=== PATIENT | female | born 1965 | race Caucasian/White ===

== ENCOUNTER 2023-02-04 16:58 | Emergency (ER) | payer BC, SELFPAY ==
[2023-02-04 17:00] VITALS: BP 128/68; PULSE 69; RESP 16; TEMP 37.1; O2SAT 100; BMI 23.5
[2023-02-04] MEDS: ONDANSETRON 4 MG ODT SL (17:09)
[2023-02-04 17:43] LABS: Add Manual Diff / Slide Review NO; Basophils Absolute Auto 100 /uL (0-100); Basophils Percent Auto 0.9 % (0-2); Eosinophils Absolute Auto 100 /uL (0-450); Eosinophils Percent Auto 0.8 % (2-4); Hematocrit 42.6 % (36-46); Hemoglobin 14.7 g/dL (12.0-16.0); Lymphocytes Absolute Auto 1800 /uL (1100-4500); Lymphocytes Percent Auto 24.1 % (25-40); Mean Corpuscular HGB Conc 34.4 % (30-36); Mean Corpuscular Hemoglobin 32.9 PG (26-34); Mean Corpuscular Volume 95.7 fL (80-100); Monocytes Absolute Auto 400 /uL (0-900); Monocytes Percent Auto 5.6 % (3-14); Neutrophils Absolute Auto 5000 /uL (1500-7000); Neutrophils Percent Auto 68.6 % (50-75); Platelet Count 265 X10^3/uL (150-400); Red Blood Cell Count 4.45 X10^6/uL (4.0-5.2); Red Cell Distribution Width 12.5 % (11.6-14.8); White Blood Cell Count 7.3 X10^3/uL (4.5-11.0)
[2023-02-04 17:45] LABS: Alanine Aminotransferase 26 IU/L (<35); Albumin 4.8 g/dL (3.5-5.0); Albumin Globulin Ratio 1.4 (1.0-2.8); Alkaline Phosphatase 66 U/L (38-126); Aspartate Aminotransferase 26 IU/L (14-36); BUN Creatinine Ratio 18.9 (6-22); Blood Urea Nitrogen 14 mg/dL (7-17); Calcium 9.6 mg/dL (8.4-10.2); Carbon Dioxide 32 mmol/L (22-32); Chloride 99 mmol/L (98-107); Estimated Glomerular Filt Rate > 60 mL/min (>60); Globulin 3.5 g/dL (1.7-4.1); Glucose 90 mg/dL (70-100); HEMOLYSIS < 15 (0-50); Lipase 228 U/L (23-300); Potassium 3.9 mmol/L (3.4-5.1); Sodium 139 mmol/L (137-145); Total Protein 8.3 g/dL (6.3-8.2)
[2023-02-04] MEDS: SODIUM CHLORIDE 0.9% 1,000 ML 1000 ML IV (17:49)
--- NOTE | 2023-02-04 18:27 | ED_ITS ---
HPI - Nausea/Vomiting/Diarrhea General Chief complaint: Nausea/Vomiting/Diarrhea Stated complaint: Vomiting Time Seen by Provider: 02/04/23 17:31 Source: patient Mode of arrival: Ambulatory History of Present Illness HPI Narrative: 57-year-old woman with a history of moderate obesity has been on Ozempic for the last 6 months with a 50 lb weight loss had stopped medications approximately 2 weeks ago took her last dose 2 days ago and began having significant vomiting to the point she was unable to keep any foods down. No diarrhea, no fevers nobody else at home sick. She has not had previous issues with the medication. She is complaining of low-grade headache that she is attributing to dehydration. She is not complaining of additional abdominal pain, shortness breath, palpitations. Related Data Home Medications Medication Instructions Recorded Confirmed No Known Home Medications 12/11/20 12/11/20 Allergies Allergy/AdvReac Type Severity Reaction Status Date / Time latex [LATEX] Allergy Intermediate TURNS SKIN Verified 02/04/23 17:00 RED codeine [CODEINE] Allergy Unknown Verified 02/04/23 17:00 Opioids-Meperidine and AdvReac Intermediate N/V Verified 02/04/23 17:00 Related [OPIOIDS-MEPERIDINE AND RELATED] Review of Systems Review of Systems Narrative: Pertinent positive and negative findings as per HPI Patient History Surgical History History of gynecologic surgery (11/27/17) History of tonsillectomy Status post appendectomy Status post bilateral salpingectomy (11/27/17) Status post laparoscopy Status post vaginal hysterectomy (11/27/17) Social History Smoking Status: Never smoker Smoking Status: Never smoker alcohol intake frequency: holidays/special occasions only Substance Use Type: marijuana Exam Initial Vital Signs Initial Vital Signs: Vital Signs Temperature 98.7 F 02/04/23 17:00 Pulse Rate 69 02/04/23 17:00 Respiratory Rate 16 02/04/23 17:00 Blood Pressure 128/68 02/04/23 17:00 Pulse Oximetry 100 02/04/23 17:00 Oxygen Delivery Method Room Air 02/04/23 17:00 General: Healthy appearing, in no acute distress. Able to give a complete and coherent history. Well-nourished well-developed HEENT: Moist mucous membranes, normal sclera with reactive pupils, Respiratory: Lungs are clear to auscultation, no wheezing no rales no rhonchi. Full and symmetrical air movement Cardiac: Regular rate and rhythm no murmurs no bruits Abdomen: Soft, nontender, good bowel tones, no flank pain Skin: Warm and dry, no rashes Neurologic: Grossly neurologically intact with no obvious asymmetries or abnormalities Extremities: No trauma, well perfused Psych: Cooperative, appropriate insight and affect Course Orders Ordered: Discontinued Medications Sodium Chloride (Normal Saline 0.9%) 1,000 mls @ 1,000 mls/hr IV BOLUS ONE Stop: 02/04/23 18:31 Last Infusion: 02/04/23 19:43 Dose: 0 mls/hr Documented By: Admin: 02/04/23 17:49 Dose: 1,000 mls/hr Documented By: RUSTAM Ketorolac Tromethamine (Ketorolac 30 Mg/Ml Vial) 15 mg IV NOW ONE Stop: 02/04/23 18:45 Last Admin: 02/04/23 19:13 Dose: 15 mg Documented By: RUSTAM Ondansetron HCl (Ondansetron 4 Mg Odt) 4 mg SL NOW PRN PRN Reason: Nausea And Vomiting Last Admin: 02/04/23 17:09 Dose: 4 mg Documented By: RUSTAM Ondansetron HCl (Ondansetron 4 Mg/2 Ml Inj) 4 mg IV NOW PRN PRN Reason: Nausea And Vomiting Ondansetron HCl (Ondansetron 4 Mg Odt) 4 mg SL NOW ONE Stop: 02/04/23 18:54 Ondansetron HCl (Ondansetron 4 Mg Odt Prepack) 1 bottle MISC SEEINSTR ONE Stop: 02/04/23 19:33 Last Admin: 02/04/23 19:43 Dose: 1 bottle Documented By: JOSE Vital Signs Vital signs: Vital Signs - 8 hr 02/04/23 17:00 Temperature 98.7 F Pulse Rate 69 Respiratory Rate 16 Blood Pressure 128/68 Pulse Oximetry 100 Oxygen Delivery Method Room Air MDM - Nausea/Vomiting/Diarrhea Lab Data 02/04/23 17:20 02/04/23 17:20 Labs: Lab Results 02/04/23 02/04/23 02/04/23 Range/Units 17:20 17:20 17:20 WBC 7.3 (4.5-11.0) X10^3/uL RBC 4.45 (4.0-5.2) X10^6/uL Hgb 14.7 (12.0-16.0) g/dL Hct 42.6 (36-46) % MCV 95.7 (80-100) fL MCH 32.9 (26-34) PG MCHC 34.4 (30-36) % RDW 12.5 (11.6-14.8) % Plt Count 265 (150-400) X10^3/uL Neut % (Auto) 68.6 (50-75) % Lymph % (Auto) 24.1 L (25-40) % [place] % (Auto) 5.6 (3-14) % Eos % (Auto) 0.8 L (2-4) % Baso % (Auto) 0.9 (0-2) % Neut # (Auto) 5000 (9312-3543) /uL Lymph # (Auto) 1800 (4909-1524) /uL [place] # (Auto) 400 (0-900) /uL Eos # (Auto) 100 (0-450) /uL Baso # (Auto) 100 (0-100) /uL Sodium 139 (137-145) mmol/L Potassium 3.9 (3.4-5.1) mmol/L Chloride 99 (98-107) mmol/L Carbon Dioxide 32 (22-32) mmol/L BUN 14 (7-17) mg/dL Creatinine 0.74 (0.52-1.04) mg/dL Estimated GFR > 60 (>60) mL/min BUN/Creatinine Ratio 18.9 (6-22) Glucose 90 (70-100) mg/dL Calcium 9.6 (8.4-10.2) mg/dL Total Bilirubin 1.0 (0.2-1.3) mg/dL AST 26 (14-36) IU/L ALT 26 (<35) IU/L Alkaline Phosphatase 66 (38-126) U/L Total Protein 8.3 H (6.3-8.2) g/dL Albumin 4.8 (3.5-5.0) g/dL Globulin 3.5 (1.7-4.1) g/dL Albumin/Globulin Ratio 1.4 (1.0-2.8) Lipase 228 (23-300) U/L Urine RBC (0-5/HPF) Urine WBC (0-5/HPF) Ur Squamous Epith Cells (0-5/HPF) Amorphous Sediment Urine Bacteria (None) Urine Mucus (Negative) Ur Culture Indicated? 02/04/23 Range/Units 17:20 WBC (4.5-11.0) X10^3/uL RBC (4.0-5.2) X10^6/uL Hgb (12.0-16.0) g/dL Hct (36-46) % MCV (80-100) fL MCH (26-34) PG MCHC (30-36) % RDW (11.6-14.8) % Plt Count (150-400) X10^3/uL Neut % (Auto) (50-75) % Lymph % (Auto) (25-40) % [place] % (Auto) (3-14) % Eos % (Auto) (2-4) % Baso % (Auto) (0-2) % Neut # (Auto) (7251-5968) /uL Lymph # (Auto) (9808-5726) /uL [place] # (Auto) (0-900) /uL Eos # (Auto) (0-450) /uL Baso # (Auto) (0-100) /uL Sodium (137-145) mmol/L Potassium (3.4-5.1) mmol/L Chloride (98-107) mmol/L Carbon Dioxide (22-32) mmol/L BUN (7-17) mg/dL Creatinine (0.52-1.04) mg/dL Estimated GFR (>60) mL/min BUN/Creatinine Ratio (6-22) Glucose (70-100) mg/dL Calcium (8.4-10.2) mg/dL Total Bilirubin (0.2-1.3) mg/dL AST (14-36) IU/L ALT (<35) IU/L Alkaline Phosphatase (38-126) U/L Total Protein (6.3-8.2) g/dL Albumin (3.5-5.0) g/dL Globulin (1.7-4.1) g/dL Albumin/Globulin Ratio (1.0-2.8) Lipase (23-300) U/L Urine RBC None seen (0-5/HPF) Urine WBC 0-1/hpf (0-5/HPF) Ur Squamous Epith Cells None seen (0-5/HPF) Amorphous Sediment 1+ Urine Bacteria None seen (None) Urine Mucus 1+ H (Negative) Ur Culture Indicated? Cult not indicated Urine Dip Bedside Urine Glucose Negative Bedside Urine Bilirubin - Negative Bedside Urine Ketone ++ 40 Urine Specific [place] 1.010 Bedside Urine Occult Blood - Negative Bedside Urine pH 7.5 Bedside Urine Protein +/- 15 Bedside Urine Urobilinogen - Negative Bedside Urine Nitrite - Negative Bedside Urine Leukocytes +/- 15 Esterase MDM Narrative Medical decision making narrative: CC: Vomiting, acute issue uncertain prognosis Complicating co-morbidities: 50 lb weight loss in the last 6 months with effort, final dose of Ozempic concurrent with onset of nausea Data collected from: patient, Differential considered: Medication related nausea, bowel obstruction, viral syndrome Exam documented above, pertinent findings include: Benign exam with minimal clinical symptoms of Ingrid beer dehydration Lab Test results independently reviewed as above. Pertinent findings: CBC is unremarkable Chemistries are reassuring with a creatinine of 0.74 Urine shows ketones but no signs of infection Treatments: When L of fluid, IV Toradol, IV Zofran, discharged home with p.o. Zofran Discussion: 57-year-old woman with 48 hours of severe vomiting not necessarily associated with nausea. She has not been able to keep food down. She is feeling significantly better after moderate hydration and antiemetics. She is able to keep sips of water and crackers down. We talked about simple diet for the next 24-48 hours. Regarding her headache, it is mild, not associated with fevers, light sensitivity or nuchal rigidity. I suspect this is simply related to food and water deprivation over the last 48 hours. I am not concerned with meningitis at this point At this point she is not showing any signs of acute surgical abdomen or reason for additional imaging, blood work or hospita lization. All findings reviewed with her and she is safe for discharge home Discharge Plan Departure Patient Disposition: Home Clinical Impression: Acute dehydration Vomiting Qualifiers: Vomiting type: unspecified Nausea presence: without nausea Qualified Code(s): R11.11 - Vomiting without nausea Headache Qualifiers: Headache type: orthostatic headache Qualified Code(s): R51.0 - Headache with orthostatic component, not elsewhere classified Instructions: DI for Dehydration -- Adult, DI for Nausea -- Adult Activity Restrictions/Additional Instructions: Thank you for coming in today I do not know if all of your symptoms are related to that final dose of Ozempic or a mild viral infection. Either way, the treatment is going to be the same. You have received a L of saline, IV Toradol to help with the low-grade headache and IV Zofran to help with the nausea. I have sent you home with a couple tablets of Zofran to use if you need it should nausea return. In the meantime resuming eating with simple liquids and simple to digest foods, thank bananas, rice, applesauce, toast, broth, for the n ext couple of days will be helpful. I encourage you to follow-up with your primary care doctor. If you find that you are getting worse or develop any new symptoms, please feel free to return to the emergency department for further evaluation. Prescriptions: No Action No Known Home Medications Referrals: Sindi Bryan PA-C [Primary Care Provider] - Stand Alone Forms: Patient Portal/API
[2023-02-04 18:50] LABS: Amorphous Sediment Urine 1+; Bacteria Urine None Seen; Mucus Urine 1+ (Negative); RBC Urine None Seen (0-5/HPF); Squamous Epithelial Cell Urine None Seen (0-5/HPF); WBC Urine 0-1/HPF (0-5/HPF)
[2023-02-04 18:51] LABS: Culture Indicated Urine Cult Not Indicated
[2023-02-04] MEDS: KETOROLAC 30 MG/ML VIAL 15 MG IV (19:13)
--- NOTE | 2023-02-04 19:30 | PC.NURSE ---
pt given water to drink, tolerated well
[2023-02-04] MEDS: ONDANSETRON 4 MG ODT PREPACK 1 BOTTLE MISC (19:43)
[2023-02-04 19:44] VITALS: BP 135/77; PULSE 77; RESP 18; TEMP 37.2; O2SAT 98
== END 2023-02-04 19:44 | disposition home or self-care (01) ==
PROVIDERS: Emergency Medicine; Emergency Provider Emergency Medicine; PCP Physician Assistant
DX: R11.10 Vomiting, unspecified (principal); E86.0 Dehydration; R51.0 Headache with orthostatic component, not elsewhere classified
CPT/HCPCS: 36415; 80053; 81003; 81015; 83690; 85025; 96361; 96374; 99284; J1885

== ENCOUNTER 2023-02-24 07:24 | Day surgery (SDC) | payer BC, SELFPAY ==
--- NOTE | 2023-02-24 | PATH_ITS ---
[facility] Accession Number: [id number] No. of containers..04 Tissue . 01 Material submitted: . PART A: colon - HEPATIC FLEXURE POLYP PART B: colon - TRANSVERSE COLON POLYP PART C: rectum - RECTAL POLYP PART D: rectum - RECTUM POLYP . 01 Diagnosis: A. Hepatic Flexure, Polypectomy: Tubular adenomas. . B. Transverse Colon, Polypectomy: Benign lymphoid aggregate. . C. Rectum, Polypectomy: Benign lymphoid aggregate. . D. Rectum, Polypectomy: Hyperplastic polyp. [facility] 03/02/2023 1137 Local . 01 Electronically signed: . Celia Galvez MD, Pathologist NPI- [id number] . 01 Gross description: . Part A: HEPATIC FLEXURE POLYP: Received in formalin are multiple fragment(s) of julian, soft tissue measuring 0.1 x 0.1 x 0.1 cm to 0.3 x 0.2 x 0.2 cm submitted entirely in 1 cassette(s) Part B: TRANSVERSE COLON POLYP: Received in formalin are 2 fragment(s) of julian, soft tissue measuring 0.2 x 0.2 x 0.2 cm to 0.3 x 0.3 x 0.3 cm submitted entirely in 1 cassette(s) Part C: RECTAL POLYP: Received in formalin are 3 fragment(s) of julian, soft tissue measuring 0.1 x 0.1 x 0.1 cm to 0.3 x 0.2 x 0.2 cm submitted entirely in 1 cassette(s) Part D: RECTUM POLYP: Received in formalin is 1 fragment(s) of julian, soft tissue measuring 1.1 x 0.5 x 0.3 cm submitted entirely in 1 cassette(s) /DANISH 02/28/20232030 Local . 01 Pathologist provided ICD-10: D12.3 . 01 CPT . 297288, 631116, 765573, 012926 Specimen Comment: A courtesy copy of this report has been sent to [facility] Pathology Performed at: 01 [facility] [address] [place] [address], [place], [place] [id number] MD Misael Ortiz MD Phone: [phone]
[2023-02-24 07:46] VITALS: BP 121/70; PULSE 61; RESP 18; TEMP 36.3; O2SAT 100; BMI 23.1
[2023-02-24] MEDS: LACTATED RINGERS 1,000 ML 84 ML IV (08:06)
--- NOTE | 2023-02-24 08:26 | P.HP_ITS ---
History of Present Illness History of Present Illness Date Patient Seen: 02/24/23 Time Patient Seen: 08:26 Chief complaint: SDC, POS FIT Narrative: 57 yo F presents today for her 1st colonoscopy. She is nervous. She had a positive Cologuard test. She has no family history of colon cancer and has not been any concerning symptoms of changes in bowel movements bleeding from below or abdominal pain. She did recently have a bout of viral gastroenteritis but has fully recovered from that. Also notes that she is had pelvic surgery with a partial hysterectomy and cystocele or rectocele. She has no further questions and would like to proceed. [facility] Surgical History History of gynecologic surgery (11/27/17) History of tonsillectomy Status post appendectomy Status post bilateral salpingectomy (11/27/17) Status post laparoscopy Status post vaginal hysterectomy (11/27/17) Social History household members: significant other Smoking Status: Never smoker alcohol intake: current Meds Home Medications and Allergies Home Medications Medication Instructions Recorded Confirmed Type sodium sul 1.479 gram-potas ch See Rx Instructions PO PER PKG DIR 02/10/23 02/24/23 Rx 0.188 gram-magnes sul 0.225 gram #24 tabs tablet (Sutab) tretinoin 0.05 % topical cream 1 applic topical BEDTIME 02/24/23 02/24/23 History (Retin-A) Allergies Allergy/AdvReac Type Severity Reaction Status Date / Time latex [LATEX] Allergy Intermediate TURNS SKIN Verified 02/24/23 07:56 RED codeine [CODEINE] Allergy Unknown Verified 02/24/23 07:56 Opioids-Meperidine and AdvReac Intermediate N/V Verified 02/24/23 07:56 Related [OPIOIDS-MEPERIDINE AND RELATED] Exam Vital Signs (past 8 hours): - 02/24/23 07:46 Temperature 97.3 F L Pulse Rate 61 Respiratory Rate 18 Blood Pressure 121/70 Pulse Oximetry 100 Oxygen Delivery Method Room Air Oxygen Delivery Method Room Air Const General: cooperative, healthy appearing and comfortable Nutritional Appearance: average body habitus, well nourished and thin Orientation: alert, awake and oriented x3 HENMT Head: normal to inspection Eyes General: appearance normal, both eyes and all related structures Resp Effort & Inspection: normal respiratory effort and able to speak in complete sentences GI Palpation: soft and No tender Skin General: no rashes or lesions noted Extrem General: normal to inspection Assessment & Plan Assessment and plan (1) Positive colorectal cancer screening using Cologuard test: Status: Acute Assessment & Plan narrative: Presents today for screening colonoscopy I discussed the risks benefits and alternatives including but not limited to perforation of the colon and an incomplete exam she fully understands these risks and would like to proceed.
--- NOTE | 2023-02-24 09:18 | P.OP.COLON_ITS ---
Operative Date/Time/Diagnoses Date of procedure: 02/24/23 Time of procedure: 09:19 Pre-op diagnosis: Positive Cologuard test, screening, no family history Post-op diagnosis: same Procedure & Clinicians Study performed: Colonoscopy and biopsy Same procedure as scheduled: Yes Indications: Positive Cologuard, screening, no family history Surgeon: Karen Hill Procedure Notes Procedure in detail: Patient was taken to the endoscopy suite and placed in a left lateral decubitus position. A time-out was performed. With the help of anesthesiologist, conscious sedation was induced and monitored throughout the case. A digital rectal exam was performed and there were no masses or strictures. The colonoscope was introduced into the anal canal and advanced through to the cecum. A photograph of the appendiceal orifice was obtained. The bowel prep was good [place] bowel prep score of 2. The scope was then withdrawn for a total of 15 minutes and there was a small polyp removed with biopsy forceps at the hepatic flexure. There was a small irregularly shaped lesion possibly a small sessile polyp in the transverse colon which was removed with biopsy forceps. Finally in the rectal area a larger polyp that was potentially about a cm in size was removed with a da snare. Photograph was obtained of this polyp before and after the biopsy and the polyp was removed completely and sent for pathology. The scope was then retroflexed and a photograph of the internal hemorrhoidal piles which appeared normal was obtained. Minimal diverticula were observed. Findings: polyp(s) Specimen(s): other (1. Hepatic flexure 2. Transverse colon 3. Rectal polyp- larger in size) Complications: none Post-procedure Plan for aftercare: Depending on the pathology of the polyps it may be 3 to 7 year follow-up... a wide range, but for 3 tubular adenomas less than 1 mm the recommendation is between 3 and 5 year follow-up 1 adenoma greater than 10 mm is a 3 year follow- up. The larger polyp I believe was probably slightly less than 1 cm but the pathologists will also measure its size. I do recommend fiber supplementation for any patient with polyps.
[2023-02-24 09:20] VITALS: BP 105/70; PULSE 71; RESP 16; TEMP 36; O2SAT 98
[2023-02-24 09:26] VITALS: BP 113/66; PULSE 67; RESP 10; O2SAT 100
[2023-02-24 09:32] VITALS: BP 117/77; PULSE 68; RESP 15; O2SAT 99
[2023-02-24 09:36] VITALS: BP 105/69; PULSE 62; RESP 12; O2SAT 100
== END 2023-02-24 09:52 | disposition home or self-care (01) ==
PROVIDERS: PCP Registered Nurse; Referring Provider Surgery; Visit Provider Surgery
PROC: 0DJD8ZZ Inspection of Lower Intestinal Tract, Via Natural or Artificial Opening Endoscopic (ICD-10-PCS; CPT 45378; principal; 2023-02-24 08:45)
DX: R19.5 Other fecal abnormalities (principal); D12.7 Benign neoplasm of rectosigmoid junction; D12.3 Benign neoplasm of transverse colon
CPT/HCPCS: 45380; J2704; J3010

== ENCOUNTER → 2023-12-23 08:32 | Outpatient (CLI) | payer BC, SELFPAY ==
--- NOTE | 2023-12-23 08:34 | DI.MRI.S_ITS ---
PROCEDURE: MR CERVICAL SPINE WO CON INDICATIONS: Radiculopathy, cervical region TECHNIQUE: Noncontrast sagittal T1 spin echo and T2 fast spin echo, sagittal STIR, foraminal oblique sagittal T2 fast spin echo, and axial gradient echo or T2 fast spin echo through the cervical spine. COMPARISON: [facility], MR, C-SPINE WITHOUT CONTRAST, 10/26/2015, 10:42. FINDINGS: Image quality: Excellent. Alignment and Curvature: There is normal bony alignment. Bone Marrow: Marrow demonstrates normal overall signal. Spinal Cord: Visualized spinal cord has normal size and signal. No cerebellar tonsillar herniation. Paraspinous Soft Tissues: No paravertebral masses. Prevertebral soft tissues are normal in thickness. Discs: Mild scattered multilevel disc desiccation. C2-C3: No disc bulge or spinal stenosis. No foraminal narrowing. No interval change. C3-C4: Minimal disc bulge with minimal effacement of the anterior thecal sac. Minimal to mild right foraminal narrowing. No interval change. C4-C5: Mild disc bulge without spinal stenosis. Mild right and moderate left foraminal narrowing with uncovertebral hypertrophy. No interval change. C5-C6: Mild disc bulge with mild spinal stenosis. Moderate bilateral foraminal narrowing with uncovertebral hypertrophy. No interval change. C6-C7: No disc bulge or spinal stenosis. Minimal right foraminal narrowing with uncovertebral hypertrophy, minimally progressive. C7-T1: No disc bulge, spinal stenosis or foraminal narrowing. IMPRESSION: Degenerative changes relatively stable as described above. Foraminal narrowing remains most prominent at C5-6 secondary to uncovertebral arthropathy. Dictated by: Dot Alfred M.D. on 12/25/2023 at 11:17 Approved by: Dot Alfred M.D. on 12/25/2023 at 11:25
== END ==
PROVIDERS: PCP Registered Nurse; Referring Provider Physical Medicine & Rehabilitation; Visit Provider Physical Medicine & Rehabilitation
DX: M50.121 Cervical disc disorder at C4-C5 level with radiculopathy (principal); M48.02 Spinal stenosis, cervical region; M47.22 Other spondylosis with radiculopathy, cervical region
CPT/HCPCS: 72141

== ENCOUNTER → 2025-04-01 13:51 | Outpatient (CLI) | payer OTHER, SELFPAY ==
--- NOTE | 2025-04-01 13:52 | DI.RAD.S_ITS ---
PROCEDURE: XR FOOT LT MIN 3V INDICATIONS: pain and swelling base of 5th metatarsal TECHNIQUE: 3 views of the foot were acquired. COMPARISON: None. FINDINGS: Bones: Transverse nondisplaced acute fracture of the 5th metatarsal base noted. 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 Subtotally unified nondisplaced chronic fracture of the proximal dorsal navicular appreciated Joints: Mild 1st MTP and all interphalangeal degeneration Soft tissues: Minor calcification Achilles tendon insertion. IMPRESSION: Nondisplaced transverse fracture-5th metatarsal base Dictated by: Jose Armando Carlson M.D. on 04/02/2025 at 11:51 Approved by: Jose Armando Carlson M.D. on 04/02/2025 at 11:52
== END ==
PROVIDERS: PCP Family Medicine; Referring Provider Family Medicine; Visit Provider Family Medicine
DX: S92.355A Nondisplaced fracture of fifth metatarsal bone, left foot, initial encounter for closed fracture (principal); M19.072 Primary osteoarthritis, left ankle and foot; M79.672 Pain in left foot; M79.89 Other specified soft tissue disorders
CPT/HCPCS: 73630